=== PATIENT | female | born 1990 | race Two or more races ===

== ENCOUNTER 2021-09-24 10:14 | Emergency (ER) | payer MEDICAID ==
[~2021-09-24] VITALS: Ht 170.2 cm; Wt 72.6 kg
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
--- NOTE | 2021-09-24 11:10 | NUR ---
[facility]
[2021-09-24] MEDS ORDERED: IBUPROFEN 600 MG TABLET ONE (11:52)
[2021-09-24] MEDS ORDERED: IBUPROFEN 600 MG TABLET PO ONE (12:00)
[2021-09-24] MEDS ORDERED: IBUP-1955 PO (13:08)
[2021-09-24] MEDS ORDERED: CYCL10TA9 PO (13:08)
[2021-09-24 13:15] VITALS: BP 117/69
--- NOTE | 2021-09-24 13:15 | NUR ---
Patient discharged to home in stable condition. Written and verbal after care instructions given. Patient verbalizes understanding of instruction.
== END 2021-09-24 13:15 | disposition home or self-care (01) ==
LOC: ER 10:24
DX: S29.012A Strain of muscle and tendon of back wall of thorax, initial encounter (principal); R51.9 Headache, unspecified; Z86.69 Personal history of other diseases of the nervous system and sense organs; V49.9XXA Car occupant (driver) (passenger) injured in unspecified traffic accident, initial encounter; Y93.89 Activity, other specified; Y92.89 Other specified places as the place of occurrence of the external cause; Y99.8 Other external cause status
CPT/HCPCS: 70450-TC

== ENCOUNTER 2022-02-16 17:41 | Emergency (ER) | payer MEDICAID ==
[~2022-02-16] VITALS: Ht 167.6 cm; Wt 68.0 kg
[~2022-02-16 17:41] MED LIST: CYCL10TA9 PO; IBUP-1955 PO
--- NOTE | 2022-02-16 18:25 | NUR ---
BIBS C/ HEADACHE X COUPLE DAYS THAT HAS PROGRESSIVELY GOTTEN WORSE. PT ATTACHED TO MONITOR, VITALS ARE WITHIN NORMAL LIMITS. AWAITING MD ORDERS.
[2022-02-16 18:30] VITALS: BP 145/56
[2022-02-16] MEDS ORDERED: KETOROLAC TROMETHAMINE INJ 30 MG/ML VIAL IV ONE (19:00)
[2022-02-16] MEDS ORDERED: ACETAMINOPHEN ES 500 MG TABLET PO ONE (19:00)
[2022-02-16] MEDS ORDERED: METOCLOPRAMIDE HCL 10 MG/2 ML VIAL IV ONE (19:00)
[2022-02-16] MEDS ORDERED: IV NS 0.9% 1,000 ML BAG IV ONE (19:00)
[2022-02-16] MEDS ORDERED: diphenhydrAMINE HCL 50 MG/ML VIAL IV ONE (19:00)
[2022-02-16] MEDS ORDERED: METOCLOPRAMIDE HCL 10 MG/2 ML VIAL ONE (19:02)
[2022-02-16] MEDS ORDERED: ACETAMINOPHEN ES 500 MG TABLET ONE (19:02)
[2022-02-16] MEDS ORDERED: diphenhydrAMINE HCL 50 MG/ML VIAL ONE (19:02)
[2022-02-16] MEDS ORDERED: KETOROLAC TROMETHAMINE 15 MG/ML VIAL ONE (19:02)
--- NOTE | 2022-02-16 19:40 | NUR ---
Patient discharged to home in stable condition. Written and verbal after care instructions given. Patient verbalizes understanding of instruction.
== END 2022-02-16 20:46 | disposition home or self-care (01) ==
LOC: ER 17:42
DX: R51.9 Headache, unspecified (principal); F43.9 Reaction to severe stress, unspecified; F41.9 Anxiety disorder, unspecified; Z63.4 Disappearance and death of family member; Z79.899 Other long term (current) drug therapy
CPT/HCPCS: 99284; 96374; 96375; 96361; J1200; J2765; J7030; J1885

== ENCOUNTER 2022-06-28 19:37 | Emergency (ER) | payer MEDICAID ==
[~2022-06-28] VITALS: Ht 167.6 cm; Wt 74.8 kg
[2022-06-28] MEDS ORDERED: ONDANSETRON HCL/PF 4 MG/2 ML VIAL ONE (19:50)
--- NOTE | 2022-06-28 19:50 | NUR ---
[id number] FROM HOME WITH CC OF ABDOMINAL PAIN AND VOMITING. BEEN DOING BINGE ALCOHOL DRINKING THE WHOLE DAY. PT IS AAO X 4 BUT RESTLESS, BREATHING UNLABORED, HAD 1 EPISODE OF VOMITING UPON ARRIVAL AT ED. PT ATTACHED TO MONITOR AND PULSE OX. AWAITING MD ARCHULETA.
--- NOTE | 2022-06-28 19:54 | NUR ---
URINE SPECIMEN SENT TO LAB
--- NOTE | 2022-06-28 19:56 | NUR ---
IV FITZ G20 INSERTED ON RIGHT AC. BLOOD DRAWN AND SENT TO LAB
[2022-06-28] MEDS ORDERED: IV NS 0.9% 1,000 ML IV ONE (20:00)
[2022-06-28 20:29] LABS: CALCIUM, SERUM 8.8 mg/dL (8.5-10.1); CREATININE 0.6 mg/dL (0.6-1.3); POTASSIUM 3.6 mmol/L (3.5-5.1)
[2022-06-28] MEDS ORDERED: ONDANSETRON HCL/PF - ER 4 MG/2 ML VIAL IV ONE (20:30)
[2022-06-28 20:34] LABS: ALBUMIN 4.3 g/dL (3.4-5.0); BILIRUBIN,DIRECT 0.1 mg/dL (0.0-0.2); BILIRUBIN,TOTAL 0.3 mg/dL (0.2-1.0); TOTAL PROTEIN, SERUM 8.3 g/dL (6.4-8.2)
[2022-06-28] MEDS ORDERED: HALOPERIDOL LACTATE INJ 5 MG/ML VIAL IV ONE (22:00)
[2022-06-28 22:25] LABS: BASOPHILS % (AUTO) 0.4 % (0.0-2.0); EOSINOPHILS % (AUTO) 0.1 % (0.0-6.0); HEMATOCRIT 42 % (33-45); HEMOGLOBIN 13.8 g/dL (11.5-14.8); LYMPHOCYTES # (AUTO) 2.9 K/uL (0.8-4.8); MEAN CORPUSCULAR HGB CONC 33 g/dl (31.0-36.0); MEAN CORPUSCULAR VOLUME 89 fL (82-100); MONOCYTES # (AUTO) 0.4 K/uL (0.1-1.30); MONOCYTES % (AUTO) 5.2 % (2.0-12.0); NEUTROPHILS # (AUTO) 5.1 K/uL (1.8-8.9); NEUTROPHILS % (AUTO) 60.3 % (43.0-81.0); PLATELET COUNT (AUTO) 283 K/uL (150-450); RED BLOOD CELL COUNT(AUTO) 4.69 MIL/uL (4.0-5.2); WHITE BLOOD COUNT (AUTO) 8.4 K/uL (4.3-11.0)
[2022-06-28] MEDS ORDERED: LORAZEPAM INJ 2 MG/ML VIAL ONE ×2 (22:33→23:26)
[2022-06-28] MEDS ORDERED: HALOPERIDOL LACTATE INJ 5 MG/ML VIAL ONE (22:37)
--- NOTE | 2022-06-28 22:40 | NUR ---
HALDOL [address] BAUM TO BE GIVEN IV. PT SR ON THE MONITOR.
--- NOTE | 2022-06-28 22:50 | NUR ---
PT'S FATHER [phone]
[2022-06-28] MEDS ORDERED: diphenhydrAMINE HCL 50 MG/ML VIAL ONE (23:26)
[2022-06-28] MEDS ORDERED: diphenhydrAMINE HCL 50 MG/ML VIAL IM ONE (23:30)
[2022-06-28] MEDS ORDERED: LORAZEPAM INJ 2 MG/ML VIAL IV ONE (23:30)
--- NOTE | 2022-06-28 23:36 | NUR ---
TRIED CALLING PT'S DAD STEVE AT [phone] MULTIPLE TIMES, NO ANSWER. LEFT AND PROVIDED WITH CALL BACK NUMBER
--- NOTE | 2022-06-29 06:32 | NUR ---
CALLED PT'S DAD PHONE NUMBER. NOT PICKING UP. LEFT VM
--- NOTE | 2022-06-29 06:57 | NUR ---
Patient discharged to home in stable condition. Written and verbal after care instructions given. Patient verbalizes understanding of instruction.Pt ambulatory with a steady gait
[2022-06-29 06:58] VITALS: BP 121/71
== END 2022-06-29 06:58 | disposition home or self-care (01) ==
LOC: ER 19:38
DX: F10.129 Alcohol abuse with intoxication, unspecified (principal); Z79.899 Other long term (current) drug therapy; Y90.9 Presence of alcohol in blood, level not specified; R11.2 Nausea with vomiting, unspecified
CPT/HCPCS: 99285; 96374; 96375; 96361; 96372; 85025; 80048; 83690; 80076; 36415; J2060; J1200; J1630; J2405 ×2; J7030

== ENCOUNTER 2022-11-12 14:59 | Emergency (ER) | payer MEDICAID ==
[~2022-11-12] VITALS: Ht 167.6 cm; Wt 68.0 kg
[2022-11-12] MEDS ORDERED: TRIA80OI TP (17:18)
[2022-11-12 17:28] VITALS: BP 120/85; TEMP 98; O2SAT 100
== END 2022-11-12 17:27 | disposition home or self-care (01) ==
LOC: ER 15:03
DX: R51.9 Headache, unspecified (principal)
CPT/HCPCS: 70450-TC

== ENCOUNTER 2022-12-27 02:10 | Emergency (ER) | payer MEDICAID ==
[~2022-12-27] VITALS: Ht 167.6 cm; Wt 68.0 kg
[~2022-12-27 02:10] MED LIST changes: +TRIA80OI TP
[2022-12-27] MEDS ORDERED: ONDANSETRON HCL/PF 4 MG/2 ML VIAL ONE (02:23)
[2022-12-27] MEDS ORDERED: ONDANSETRON HCL/PF 4 MG/2 ML VIAL IVP ONE (02:30)
[2022-12-27] MEDS ORDERED: IV NS 0.9% 1,000 ML BAG IV ONE (02:30)
[2022-12-27 02:44] LABS: BASOPHILS % (AUTO) 0.3 % (0.0-2.0); EOSINOPHILS # (AUTO) 0.2 K/uL (0.0-0.7); EOSINOPHILS % (AUTO) 1.8 % (0.0-6.0); HEMATOCRIT 39 % (33-45); HEMOGLOBIN 12.8 g/dL (11.5-14.8); LYMPHOCYTES # (AUTO) 1.5 K/uL (0.8-4.8); LYMPHOCYTES % (AUTO) 11.3 % (20.0-44.0); MEAN CORPUSCULAR HEMOGLOBIN 29 PG (26.0-33.0); MEAN CORPUSCULAR HGB CONC 33 g/dl (31.0-36.0); MEAN CORPUSCULAR VOLUME 90 fL (82-100); MONOCYTES # (AUTO) 0.3 K/uL (0.1-1.30); NEUTROPHILS # (AUTO) 11.5 K/uL (1.8-8.9); NEUTROPHILS % (AUTO) 84.6 % (43.0-81.0); PLATELET COUNT (AUTO) 283 K/uL (150-450); RED BLOOD CELL COUNT(AUTO) 4.35 MIL/uL (4.0-5.2); WHITE BLOOD COUNT (AUTO) 13.6 K/uL (4.3-11.0)
[2022-12-27 02:53] LABS: CALCIUM, SERUM 8.7 mg/dL (8.5-10.1); CREATININE 0.5 mg/dL (0.6-1.3); POTASSIUM 3.8 mmol/L (3.5-5.1)
[2022-12-27] MEDS ORDERED: HALOPERIDOL LACTATE INJ 5 MG/ML VIAL ONE (02:56)
[2022-12-27 02:57] LABS: ALBUMIN 3.9 g/dL (3.4-5.0); BILIRUBIN,DIRECT 0.1 mg/dL (0.0-0.2); BILIRUBIN,TOTAL 0.2 mg/dL (0.2-1.0); TOTAL PROTEIN, SERUM 7.6 g/dL (6.4-8.2)
[2022-12-27] MEDS ORDERED: KETOROLAC TROMETHAMINE INJ 30 MG/ML VIAL ONE (02:57)
[2022-12-27] MEDS ORDERED: KETOROLAC TROMETHAMINE INJ 30 MG/ML VIAL IV ONE (03:00)
[2022-12-27] MEDS ORDERED: HALOPERIDOL LACTATE INJ 5 MG/ML VIAL IV ONE (03:00)
[2022-12-27] MEDS ORDERED: MAG HYDROX/AL HYDROX/SIMETH 30 ML UDC ONE (04:21)
[2022-12-27] MEDS ORDERED: PANTOPRAZOLE 40 MG VIAL ONE (04:21)
[2022-12-27] MEDS ORDERED: LIDOCAINE VISCOUS 2% UD 15 ML UDC ONE (04:22)
[2022-12-27] MEDS ORDERED: PANTOPRAZOLE 40 MG VIAL IV ONE (04:30)
[2022-12-27] MEDS ORDERED: MAG HYDROX/AL HYDROX/SIMETH 30 ML UDC PO ONE (04:30)
[2022-12-27] MEDS ORDERED: LIDOCAINE VISCOUS 2% UD 15 ML UDC MM ONE (04:30)
[2022-12-27 04:41] LABS: APPEARANCE,URINE CLEAR (CLEAR); BILIRUBIN,URINE NEGATIVE (NEGATIVE); BLOOD, URINE 2+ Ery/uL (NEGATIVE); COLOR,URINE YELLOW (YELLOW); KETONES,URINE NEGATIVE (NEGATIVE); LEUKOCYTE ESTERASE ,URINE NEGATIVE (NEGATIVE); NITRITE, URINE NEGATIVE (NEGATIVE); PROTEIN,URINE NEGATIVE (NEGATIVE); UGLUCOSE NEGATIVE (NEGATIVE); UROBILINOGEN,URINE 0.2 EU/dL (0.2)
[2022-12-27 04:57] LABS: ADD URINE CULTURE NO; BACTERIA,URINE Rare /HPF (None Seen); SQUAMOUS EPITHELIAL CELL,UR Rare /HPF (None Seen); WBC,URINE 0-2 /HPF (0-3)
[2022-12-27 04:59] LABS: PREGNANCY TEST URINE QUAL NEGATIVE (NEGATIVE)
[2022-12-27] MEDS ORDERED: PANT40TA2 PO (05:07)
[2022-12-27] MEDS ORDERED: DICY20TA11 PO (05:07)
[2022-12-27] MEDS ORDERED: ONDA4TAB11 PO (05:07)
[2022-12-27 05:12] LABS: AMPHETAMINE, URINE NEGATIVE (NEGATIVE); BARBITURATE, URINE NEGATIVE (NEGATIVE); BENZODIAZEPINE, URINE NEGATIVE (NEGATIVE); COCCAINE, URINE NEGATIVE (NEGATIVE); OPIATE, URINE NEGATIVE (NEGATIVE); PHENCYCLIDINE SCREEN,URINE NEGATIVE (NEGATIVE)
[2022-12-27 05:20] VITALS: BP 102/77; TEMP 98.8; O2SAT 99
[2022-12-27 05:22] LABS: CANNABINOID, URINE POSITIVE (NEGATIVE)
== END 2022-12-27 05:20 | disposition home or self-care (01) ==
LOC: ER 02:22
DX: K29.70 Gastritis, unspecified, without bleeding (principal); F10.129 Alcohol abuse with intoxication, unspecified; R11.2 Nausea with vomiting, unspecified; Y90.9 Presence of alcohol in blood, level not specified
CPT/HCPCS: 99284; 96374; 96375; 96361; 85025; 80048; 83690; 80076; 84703; 36415; 80307; 81001; J1630; J1885; J2405; J7030; C9113

== ENCOUNTER 2023-02-25 11:53 | Emergency (ER) | payer MEDICAID ==
[~2023-02-25] VITALS: Ht 170.2 cm; Wt 68.5 kg
[~2023-02-25 11:53] MED LIST changes: +DICY20TA11 PO; +ONDA4TAB11 PO; +PANT40TA2 PO
[2023-02-25] MEDS ORDERED: ONDANSETRON HCL/PF 4 MG/2 ML VIAL IV ONE (12:00)
[2023-02-25] MEDS ORDERED: IV NS 0.9% 1,000 ML BAG IV ONE (12:00)
[2023-02-25] MEDS ORDERED: ONDANSETRON HCL/PF 4 MG/2 ML VIAL ONE (12:14)
[2023-02-25 12:22] LABS: BASOPHILS # (AUTO) 0.1 K/uL (0.0-0.2); BASOPHILS % (AUTO) 0.5 % (0.0-2.0); EOSINOPHILS # (AUTO) 0.1 K/uL (0.0-0.7); EOSINOPHILS % (AUTO) 0.8 % (0.0-6.0); HEMATOCRIT 41 % (33-45); HEMOGLOBIN 13.5 g/dL (11.5-14.8); LYMPHOCYTES # (AUTO) 1.5 K/uL (0.8-4.8); LYMPHOCYTES % (AUTO) 11.7 % (20.0-44.0); MEAN CORPUSCULAR HEMOGLOBIN 30 PG (26.0-33.0); MEAN CORPUSCULAR HGB CONC 33 g/dl (31.0-36.0); MEAN CORPUSCULAR VOLUME 89 fL (82-100); MONOCYTES # (AUTO) 1.1 K/uL (0.1-1.30); MONOCYTES % (AUTO) 8.7 % (2.0-12.0); NEUTROPHILS # (AUTO) 9.9 K/uL (1.8-8.9); NEUTROPHILS % (AUTO) 78.3 % (43.0-81.0); PLATELET COUNT (AUTO) 326 K/uL (150-450); RED BLOOD CELL COUNT(AUTO) 4.54 MIL/uL (4.0-5.2); RED CELL DISTRIBUTION WIDTH 13.1 % (11.5-15.0); WHITE BLOOD COUNT (AUTO) 12.6 K/uL (4.3-11.0)
[2023-02-25 12:37] LABS: ALBUMIN 4.6 g/dL (3.4-5.0); BILIRUBIN,DIRECT 0.1 mg/dL (0.0-0.2); BILIRUBIN,TOTAL 0.6 mg/dL (0.2-1.0); CREATININE 0.5 mg/dL (0.6-1.3); POTASSIUM 3.6 mmol/L (3.5-5.1); TOTAL PROTEIN, SERUM 8.7 g/dL (6.4-8.2)
[2023-02-25 12:48] LABS: APPEARANCE,URINE CLEAR (CLEAR); BILIRUBIN,URINE 1+ (NEGATIVE); BLOOD, URINE NEGATIVE Ery/uL (NEGATIVE); COLOR,URINE YELLOW (YELLOW); KETONES,URINE 1+ mg/dL (NEGATIVE); LEUKOCYTE ESTERASE ,URINE NEGATIVE (NEGATIVE); NITRITE, URINE NEGATIVE (NEGATIVE); PROTEIN,URINE TRACE mg/dl (NEGATIVE); UGLUCOSE NEGATIVE (NEGATIVE); UROBILINOGEN,URINE 0.2 EU/dL (0.2)
[2023-02-25 12:50] LABS: PREGNANCY TEST URINE QUAL POSITIVE (NEGATIVE)
[2023-02-25 13:01] LABS: ADD URINE CULTURE NO; BACTERIA,URINE Few /HPF (None Seen); RBC,URINE 0-2 /HPF (0-2); SQUAMOUS EPITHELIAL CELL,UR Many /HPF (None Seen); WBC,URINE 0-3 /HPF (0-3)
[2023-02-25] MEDS ORDERED: METO-295 PO (13:55)
[2023-02-25] MEDS ORDERED: ACETAMINOPHEN 325 MG TABLET PO ONE (15:00)
[2023-02-25] MEDS ORDERED: ACETAMINOPHEN ES 500 MG TABLET ONE (15:05)
[2023-02-25 16:19] VITALS: BP 110/72; TEMP 98.4; O2SAT 100
== END 2023-02-25 16:20 | disposition home or self-care (01) ==
LOC: ER 12:00
DX: O26.891 Other specified pregnancy related conditions, first trimester (principal); R11.2 Nausea with vomiting, unspecified; R19.7 Diarrhea, unspecified; R10.84 Generalized abdominal pain; R10.2 Pelvic and perineal pain; Z3A.01 Less than 8 weeks gestation of pregnancy; Z20.822 Contact with and (suspected) exposure to COVID-19
CPT/HCPCS: 99285; 96374; 76805; 96361; 85025; 80048; 83690; 80076; 84703; 81001; 36415; J2405; J7030